=== PATIENT | female | born 1955 | race Two or more races ===

== ENCOUNTER 2024-10-21 16:51 | Inpatient (IN) | payer OTHER ==
[~2024-10-21] VITALS: Ht 170.2 cm; Wt 134.7 kg
[2024-10-21] MEDS ORDERED: ATORVASTATIN CA40 MG PO (17:38)
[2024-10-21] MEDS ORDERED: HYDROXYCHLOROQ200 MG PO (17:38)
[2024-10-21] MEDS ORDERED: HYDROCHLOROTHIA25 MG PO (17:38)
[2024-10-21] MEDS ORDERED: VASOTEC20 MG PO (17:38)
[2024-10-21] MEDS ORDERED: CHILDREN'S ASPI81 MG (17:38)
[2024-10-21] MEDS ORDERED: FAMOtidine 10 MG/ML (4ML VIAL) IV ONE (18:30)
[2024-10-21] MEDS ORDERED: ONDANSETRON HCL 2 MG/ML VIAL IV ONE (18:30)
[2024-10-21] MEDS ORDERED: FAMOTIDINE/PF 20 MG/2 ML VIAL ONE (18:32)
[2024-10-21] MEDS ORDERED: ONDANSETRON HCL 2 MG/ML VIAL ONE (18:32)
[2024-10-21 18:47] LABS: HEMOGLOBIN 14.6 g/dL (12.0-15.00); MEAN CELL VOLUME 96.6 fL (80.00-100.00); MEAN CORPUSCULAR HEMOGLOBIN 32.8 pg (27.00-32.0); PLATELET COUNT 175 K/uL (150-450); RED BLOOD COUNT 4.45 M/uL (4.00-6.00); RED CELL DISTRIBUTION WIDTH 13.8 % (11.5-14.5)
[2024-10-21 19:10] LABS: INR 1.07; PARTIAL THROMBOPLASTIN TIME 25.8 SECONDS (22.0-34.0); PROTHROMBIN TIME 11.6 SECONDS (9.0-11.5)
[2024-10-21 19:17] LABS: ALBUMIN 3.4 gm/dL (3.4-5.0); BILIRUBIN TOTAL 0.71 mg/dL (0.3-1.2); CALCIUM 9.2 mg/dL (8.5-10.1); CREATININE SERUM 2.1 mg/dL (0.55-1.02); GFR 23.56; GLOBULINA 4.7 G/DL (2.4-3.5); POTASSIUM 4.24 mEq/L (3.5-5.1); TOTAL PROTEIN 8.1 gm/dL (6.4-8.2)
[2024-10-21] MEDS ORDERED: METRONIDAZOLE/SODIUM CHLORIDE 500 MG/100 ML PIGGYBACK IV ONE ×2 (20:30→20:53)
[2024-10-21] MEDS ORDERED: CIPROFLOXACIN IN 5 % DEXTROSE 400 MG/200 ML PIGGYBAG IV ONE ×2 (20:30→20:53)
[2024-10-21 21:04] LABS: URINE APPEARANCE Cloudy; URINE BILIRRUBIN Negative (NEGATIVE); URINE BLOOD Negative; URINE COLOR Yellow; URINE GLUCOSE Negative (NEGATIVE); URINE KETONE Negative (NEGATIVE); URINE LEUKOCYTE Trace; URINE NITRATE Positive; URINE PROTEIN Trace (NEGATIVE); URINE UROBILINOGEN 0.2 E.U./dl
[2024-10-21 21:08] LABS: URINE CAST 11.78 uL (0.0-1.40); URINE EPITHELIAL CELLS 91.8 uL (0.0-38.8); URINE RBC 9.8 uL (0.0-20.8); URINE WBC 51.7 uL (0.0-23.2)
[2024-10-21 21:19] LABS: FECAL LEUKOCYTES POSITIVE (NEGATIVE); ob POSITIVE (NEGATIVE)
[2024-10-21] MEDS ORDERED: 0.9 % SODIUM CHLORIDE 1,000 ML IV ONE (23:30)
[2024-10-22] MEDS ORDERED: ACETAMINOPHEN 325 MG TABLET PO PRN (00:15)
[2024-10-22] MEDS ORDERED: ONDANSETRON HCL 4 MG in 0.9 % SODIUM CHLORIDE 50 ML IV PRN (00:15)
[2024-10-22] MEDS ORDERED: MEPERIDINE HCL/PF 25 MG/ML VIAL IM PRN (00:15)
[2024-10-22] MEDS ORDERED: PROMETHAZINE HCL 25 MG/ML AMPUL IM PRN (00:15)
[2024-10-22] MEDS ORDERED: 0.9 % SODIUM CHLORIDE 1,000 ML IV SCH (00:30)
[2024-10-22] MEDS ORDERED: METRONIDAZOLE/SODIUM CHLORIDE 100 ML IV SCH (01:00)
[2024-10-22 02:46] VITALS: BP 157/81; O2SAT 95
[2024-10-22] MEDS ORDERED: hydrALAZINE HCL 20 MG VIAL IV PRN ×2 (06:45→15:32)
[2024-10-22 08:59] VITALS: BP 190/95
[2024-10-22] MEDS ORDERED: HYDROXYCHLOROQUINE SULFATE 200 MG TABLET PO SCH (09:00)
[2024-10-22] MEDS ORDERED: hydrALAZINE HCL 50 MG TABLET PO SCH (09:00)
[2024-10-22] MEDS ORDERED: HYDROCHLOROTHIAZIDE 25 MG TABLET PO SCH (09:00)
[2024-10-22] MEDS ORDERED: ASPIRIN 81 MG TAB.CHEW PO SCH (09:00)
[2024-10-22] MEDS ORDERED: CIPROFLOXACIN IN 5 % DEXTROSE 200 ML IV SCH (09:00)
[2024-10-22] MEDS ORDERED: ENALAPRIL MALEATE 20 MG TABLET PO SCH (09:00)
[2024-10-22] MEDS ORDERED: ACETAMINOPHEN 500 MG GEL..CAP PO PRN (10:00)
[2024-10-22] MEDS ORDERED: SODIUM CHLORIDE 0.45 % 1,000 ML IV SCH (14:00)
[2024-10-22 16:53] VITALS: BP 125/69; O2SAT 96
[2024-10-22] MEDS ORDERED: hydrALAZINE HCL 50 MG,hydrALAZINE HCL 25 MG PO SCH (17:00)
[2024-10-22] MEDS ORDERED: ATORVASTATIN CALCIUM 40 MG TABLET PO SCH (17:00)
[2024-10-22] MEDS ORDERED: PANTOPRAZOLE SODIUM 40 MG/VIAL VIAL IV SCH (21:00)
[2024-10-23 01:43] VITALS: BP 111/69; O2SAT 95
[2024-10-23 08:27] LABS: ALBUMIN 2.7 gm/dL (3.4-5.0); BILIRUBIN TOTAL 0.63 mg/dL (0.3-1.2); CALCIUM 8.1 mg/dL (8.5-10.1); CREATININE SERUM 1.39 mg/dL (0.55-1.02); GFR 37.93; POTASSIUM 4.62 mEq/L (3.5-5.1); TOTAL PROTEIN 5.7 gm/dL (6.4-8.2)
[2024-10-23 08:38] LABS: HEMATOCRIT 31.7 % (36.0-45.00); HEMOGLOBIN 10.4 g/dL (12.0-15.00); MEAN CELL VOLUME 98.3 fL (80.00-100.00); MEAN CORPUSCULAR HEMOGLOBIN 32.4 pg (27.00-32.0); MEAN CORPUSCULAR HGB CONC 32.9 g/dl (32.0-36.0); RED BLOOD COUNT 3.22 M/uL (4.00-6.00); RED CELL DISTRIBUTION WIDTH 13.7 % (11.5-14.5)
[2024-10-23 08:42] LABS: PLATELET COUNT 110 K/uL (150-450)
[2024-10-23 08:50] VITALS: BP 113/64
[2024-10-23 17:23] VITALS: BP 114/61; O2SAT 97
[2024-10-24 01:57] VITALS: BP 111/68; O2SAT 95
[2024-10-24 06:30] LABS: HEMATOCRIT 29.5 % (36.0-45.00); HEMOGLOBIN 10.2 g/dL (12.0-15.00); MEAN CELL VOLUME 95.6 fL (80.00-100.00); MEAN CORPUSCULAR HGB CONC 34.5 g/dl (32.0-36.0); RED BLOOD COUNT 3.09 M/uL (4.00-6.00); RED CELL DISTRIBUTION WIDTH 13.5 % (11.5-14.5)
[2024-10-24 06:36] LABS: PLATELET COUNT 110 K/uL (150-450)
[2024-10-24 06:58] LABS: ALBUMIN 2.7 gm/dL (3.4-5.0); BILIRUBIN TOTAL 0.53 mg/dL (0.3-1.2); CREATININE SERUM 1.05 mg/dL (0.55-1.02); GFR 52.43; POTASSIUM 3.94 mEq/L (3.5-5.1); TOTAL PROTEIN 5.7 gm/dL (6.4-8.2)
[2024-10-24 08:04] VITALS: BP 98/55
[2024-10-24] MEDS ORDERED: CIPROFLOXACIN IN 5 % DEXTROSE 200 ML IV SCH ×2 (09:00→21:00)
[2024-10-24] MEDS ORDERED: SOD FERRIC GLUC COMPLX/SUCROSE 62.5 MG in 0.9 % SODIUM CHLORIDE 50 ML IV SCH (12:00)
[2024-10-24] MEDS ORDERED: Cyanocobalamin/Mecobalamin 1 TAB.SL SL NR (12:45)
[2024-10-24 16:36] VITALS: BP 140/80; O2SAT 98
[2024-10-25] VITALS: BP 119/79; O2SAT 98
[2024-10-25 08:04] VITALS: BP 123/78
[2024-10-25] MEDS ORDERED: Cyanocobalamin/Mecobalamin 1 TAB.SL SL SCH (09:00)
[2024-10-25 16:11] VITALS: BP 147/76; O2SAT 98
[2024-10-25] MEDS ORDERED: METROnidazole 500 MG TABLET PO SCH (17:00)
[2024-10-25] MEDS ORDERED: PANTOPRAZOLE SODIUM 40 MG TABLET.DR PO SCH (21:00)
[2024-10-26 02:38] VITALS: BP 124/81; O2SAT 100
[2024-10-26 05:14] LABS: HEMATOCRIT 28.6 % (36.0-45.00); MEAN CELL VOLUME 97.2 fL (80.00-100.00); MEAN CORPUSCULAR HGB CONC 33.7 g/dl (32.0-36.0); PLATELET COUNT 131 K/uL (150-450); RED BLOOD COUNT 2.94 M/uL (4.00-6.00)
[2024-10-26 05:19] LABS: ERYTHROCYTE SEDIMENTATION RATE 84 mm/hr; HEMOGLOBIN 9.6 g/dL (12.0-15.00); MEAN CORPUSCULAR HEMOGLOBIN 32.6 pg (27.00-32.0)
[2024-10-26 06:04] LABS: ALBUMIN 2.5 gm/dL (3.4-5.0); BILIRUBIN TOTAL 0.39 mg/dL (0.3-1.2); CALCIUM 8.5 mg/dL (8.5-10.1); CREATININE SERUM 0.82 mg/dL (0.55-1.02); GFR 69.75; POTASSIUM 3.6 mEq/L (3.5-5.1); TOTAL PROTEIN 5.5 gm/dL (6.4-8.2)
[2024-10-26 07:02] LABS: C-REACTIVE PROTEIN 8.76 MG/DL (0.00-0.29)
[2024-10-26 08:56] VITALS: BP 137/85
[2024-10-26 15:08] LABS: FECAL LEUKOCYTES POSITIVE (NEGATIVE); ob POSITIVE (NEGATIVE)
[2024-10-26 16:47] VITALS: BP 137/71; O2SAT 97
[2024-10-27 01:00] VITALS: BP 125/74; O2SAT 96
[2024-10-27 08:36] VITALS: BP 127/65
[2024-10-27 15:10] LABS: hgb a 97.4 % (96.4-98.8); hgb a2 2.6 % (1.8-3.2); hgb f 0 % (0.0-2.0); hgb s 0 % (0.0)
[2024-10-27 17:57] VITALS: BP 128/71
[2024-10-28 02:23] VITALS: BP 133/79; O2SAT 95
[2024-10-28 10:53] VITALS: BP 130/69
[2024-10-28] MEDS ORDERED: INTEGRA PLUS C1 EACH PO (13:19)
[2024-10-28] MEDS ORDERED: INTESTINEX680 M2 PO (13:19)
[2024-10-28] MEDS ORDERED: CIPRO500 MG PO (13:19)
[2024-10-28] MEDS ORDERED: METRONIDAZOLE500 MG PO (13:19)
[2024-10-28] MEDS ORDERED: PANTOPRAZOLE SO40 MG PO (13:19)
[2024-10-28] MEDS ORDERED: Neurin-Sl Tablet Sl SL (13:19)
[2024-10-28 13:47] LABS: HEMATOCRIT 32.4 % (36.0-45.00); HEMOGLOBIN 10.7 g/dL (12.0-15.00); MEAN CELL VOLUME 95.9 fL (80.00-100.00); MEAN CORPUSCULAR HEMOGLOBIN 31.7 pg (27.00-32.0); PLATELET COUNT 190 K/uL (150-450); RED BLOOD COUNT 3.38 M/uL (4.00-6.00); RED CELL DISTRIBUTION WIDTH 13.2 % (11.5-14.5)
[2024-10-28 23:06] LABS: g6pd quant 307 (127-427); rbc 3.26 x10E6/uL (3.77-5.28)
== END 2024-10-28 16:15 | DRG 683 ==
LOC: ER 16:54 → MEDI 23:55
PROVIDERS: General Practice; Internal Medicine Hematology & Oncology; Internal Medicine Infectious Disease; Internal Medicine Nephrology; ADMIT Internal Medicine; ATTEND Internal Medicine
PROC: BW21ZZZ Computerized Tomography (CT Scan) of Abdomen and Pelvis (ICD-10-PCS; principal; 2024-10-21)
DX: N17.9 Acute kidney failure, unspecified (principal); N39.0 Urinary tract infection, site not specified; R18.8 Other ascites; I10 Essential (primary) hypertension; D72.829 Elevated white blood cell count, unspecified; K52.9 Noninfective gastroenteritis and colitis, unspecified; D69.6 Thrombocytopenia, unspecified; D64.9 Anemia, unspecified